=== PATIENT | female | born 1985 | race Caucasian/White ===

== ENCOUNTER 2016-12-11 17:27 | Emergency (ER) | payer BC ==
[2016-12-11 18:20] VITALS: TEMP 97.7; O2SAT 95
--- NOTE | 2016-12-11 19:06 | EDPHY ---
H & P Stated Complaint: left ear pain x 1 week Time Seen by Provider: 12/11/16 18:54 - Personal History LMP (Females 10-55): Current Tetanus/Diphtheria Vaccine: Unsure Current Tetanus Diphtheria and Acellular Pertussis (TDAP): Unsure - Medical/Surgical History Hx Asthma: No Hx Chronic Respiratory Disease: No Hx Diabetes: No Hx Cardiac Disease: No Hx Renal Disease: No Hx Cirrhosis: No Hx Alcoholism: No Hx HIV/AIDS: No Hx Splenectomy or Spleen Trauma: No Other PMH: denies - Social History Smoking Status: Never smoked Constitutional: Initial Vital Signs Temperature (C) 36.5 C 12/11/16 18:18 Heart Rate 81 12/11/16 18:18 Respiratory Rate 16 12/11/16 18:18 Blood Pressure 122/78 H 12/11/16 18:18 O2 Sat (%) 95 12/11/16 18:18 O2 Delivery Mode Room Air Allergies/Adverse Reactions: Penicillins Allergy (Verified 12/11/16 18:17) Home Medications: Medication Instructions Recorded NK [No Known Home Meds] 12/11/16 Medical Decision Making ED Course/Re-evaluation: CHIEF COMPLAINT: Hearing issue HISTORY OF PRESENT ILLNESS: The patient is a 31 y/o female complaining of hearing changes in her left ear after an ear infection 1 week ago. She was treated for a left ear infection with a Z-pack 1 week ago. This improved her pain, but she feels like she has an "echo" in her left ear. She denies fever, trauma, or any other complaints. She denies other pertinent medical history. REVIEW OF SYSTEMS: A 10 point review of systems was performed and is negative with the exception of the elements mentioned in the history of present illness. PHYSICAL EXAM: General Appearance: Alert, well hydrated, appropriate, and non-toxic appearing. Head: Atraumatic without scalp tenderness or obvious injury Eyes: Pupils equal, round, reactive to light and accommodation, EOMI, no trauma , no injection. Ears: Mild scarring left TM with some fluid behind it. no perforation, normal landmarks. Nose: Atraumatic, no rhinorrhea, clear. Throat: There is no erythema or exudates, no lesions, normal tonsils, mucus membranes moist. Neck: Supple, non-tender, no lymphadenopathy. Respiratory: No distress Cardiovascular: Good capillary refill all extremities. Musculoskeletal: Normal active ROM of all extremities, atraumatic. Neurological: Alert, appropriate, and interactive. Nonfocal neuro exam. Skin: No rashes, good turgor, no nodules on palpation. PAST MEDICAL HISTORY: Recent otitis media SOCIAL HISTORY: from [place] DIFFERENTIAL DIAGNOSIS: The differential diagnosis for the patient's symptoms included but was not limited to blocked Eustachian tube, otitis media, central nervous system cause. MEDICAL DECISION MAKING: This is a healthy 31 y/o female who presents complaining of an "echo" in her left ear following a recent otitis media. She has minor scarring on her TM with some fluid behind it on exam. Otherwise unremarkable. Symptoms consistent with blocked Eustachian tube. She will be discharged with instructions to use decongestant and steroid nasal spray for symptoms. We discussed methods to clear Eustachian tubes when flying. Recommended follow up with her PCP if needed. Return precautions given. Departure - Departure Disposition: Home, Routine, Self-Care Clinical Impression: Blocked eustachian tube Qualifiers: Laterality: left Qualified Code(s): H68.102 - Unspecified obstruction of Eustachian tube, left ear Condition: Good Instructions: Decongestant/Expectorant (By mouth), Fluticasone (Into the nose) Additional Instructions: 1. Take 1200mg Mucinex once in the morning and once in the evening for the next few days. 2. Use Flonase 2 sprays in each nostril daily while symptoms are present. 3. Use Afrin prior to flying. Do not use for extended periods of time. 4. Follow up with your primary care provider for unimproved symptoms over the next week. Referrals: NONE *PRIMARY CARE P,. [Primary Care Provider] - As per Instructions Consuelo Zimmerman MD [Medical Doctor] - As per Instructions Report Scribed for: Jamal Britt Report Scribed by: Gretchen Vail Date of Report: 12/11/16 Time of Report: 19:09
[2016-12-11 19:32] VITALS: BP 120/83; PULSE 74; RESP 18
== END 2016-12-11 19:31 | disposition home or self-care (01) ==
DX: O99.89 Other specified diseases and conditions complicating pregnancy, childbirth and the puerperium (principal); H68.102 Unspecified obstruction of Eustachian tube, left ear; Z3A.00 Weeks of gestation of pregnancy not specified